=== PATIENT | male | born 1970 | race Hispanic/Latino ===

== ENCOUNTER 2024-07-22 12:40 | Inpatient (IN) | payer SELFPAY ==
[~2024-07-22] VITALS: Ht 152.4 cm; Wt 62.6 kg
[~2024-07-22 12:40] MED LIST: FERRETTS325 MG PO; HYDROCHLOROT25 MG PO; LANTUS100 UNIT SC; LEVEMIR100 UNIT SC; LEVOFLOXACIN750 MG PO; LIPITOR20 M1 PO; LOSARTAN POTASS50 MG PO; METFORMIN HCL500 M2 PO; NOVOLOG100 UNIT SC; TRAZODONE50 MG PO; VITAMIN C 500 M1 TAB PO
[2024-07-22] MEDS ORDERED: [UNRECOGNIZED DRUG - OTHER] PO (15:43)
[2024-07-23] MEDS ORDERED: GENTAMICIN SULFATE 250 MG in DEXTROSE 5% 100 ML IV ONE (12:50)
[2024-07-23] MEDS ORDERED: oxyCODONE HCL 5 MG/TAB PO PRN (22:00)
[2024-07-23] MEDS ORDERED: MAGNESIUM HYDROXIDE 30 ML UDC PO PRN (22:00)
[2024-07-23] MEDS ORDERED: DEXTROSE 250 ML IV PRN (22:00)
[2024-07-23] MEDS ORDERED: SODIUM CHLORIDE 0.9% 1,000 ML IV PRN (22:00)
[2024-07-23] MEDS ORDERED: ACETAMINOPHEN 325 MG/TAB PO PRN (22:00)
[2024-07-24] MEDS ORDERED: INSULIN LISPRO 100 UNITS/ML ML SC SCH (07:00)
[2024-07-24 07:42] VITALS: BP 149/61
[2024-07-24 09:41] LABS: BASO% 0.2 % (0-3); EOS% 0.8 % (0-8); HEMATOCRIT 26.2 % (39.0-50.0); HEMOGLOBIN 7.9 g/dl (14.0-18.0); IMMATURE GRANULOCYTES 0.2 % (0.0-5.0); LYMPH% 11.6 % (15-41); MEAN CORPUSCULAR HGB 28.4 pG CALC (26.0-32.0); MEAN CORPUSCULAR HGB CONC 30.2 g/dL CAL (32.0-36.0); NEUT# 3.88 thou/uL (1.82-7.42); NEUT% 80.2 % (42-76); RED BLOOD COUNT 2.78 mill/uL (4.70-6.10); RED CELL DISTRI WIDTH 13.3 % (11.5-15.5)
[2024-07-24 09:52] LABS: CREATININE 1.2 mg/dL (0.7-1.3); MEAN CELL VOLUME 94.2 fL CALC (80.0-100.0); TOTAL PROTEIN 5.7 g/dL (6.3-8.2)
[2024-07-24 09:54] LABS: ALBUMIN 2.6 g/dL (3.2-5.0); BILIRUBIN, TOTAL 0.2 mg/dL (0.2-1.3); POTASSIUM 4.7 mmol/l (3.5-5.1)
[2024-07-24] MEDS ORDERED: PATIENT' OWN MED 1 EA DOSE PO PRN ×3 (10:35)
[2024-07-24] MEDS ORDERED: HYDROmorphone HCL 2 MG/AMP IV PRN (10:40)
[2024-07-24] MEDS ORDERED: hydroCHLOROthiazide 25 MG/TAB PO SCH (11:00)
[2024-07-24] MEDS ORDERED: LOSARTAN Potassium 50 MG/TAB PO SCH (11:00)
[2024-07-24] MEDS ORDERED: VANCOMYCIN HCL 1 GM in SODIUM CHLORIDE 0.9% 250 ML IV ONE (11:30)
[2024-07-24] MEDS ORDERED: PIPERACILLIN Sodium-Tazobactam 3.375 GM in SODIUM CHLORIDE 0.9% 100 ML IV SCH (12:00)
[2024-07-24] MEDS ORDERED: DEXTROSE 250 ML IV PRN (12:00)
[2024-07-24] MEDS ORDERED: INSULIN GLARGINE 100 UNITS/ML SC SCH (12:30)
[2024-07-24 16:29] VITALS: BP 143/58
[2024-07-24 18:47] VITALS: BP 164/65
[2024-07-24] MEDS ORDERED: ATORVASTATIN CALCIUM 20 MG/TAB PO SCH (21:00)
[2024-07-24] MEDS ORDERED: ENOXAPARIN SODIUM 40 MG/0.4 ML SYR SC SCH (21:00)
[2024-07-25 04:25] VITALS: BP 132/65
[2024-07-25 07:00] VITALS: BP 156/59
[2024-07-25 15:37] VITALS: BP 183/71
[2024-07-25 15:40] VITALS: BP 176/79
[2024-07-25 18:50] VITALS: BP 170/71
[2024-07-25 21:21] VITALS: BP 156/71
[2024-07-26 04:26] VITALS: BP 143/70
[2024-07-26 05:55] LABS: BASO% 0.6 % (0-3); EOS% 2.5 % (0-8); HEMATOCRIT 22.5 % (39.0-50.0); HEMOGLOBIN 7.4 g/dl (14.0-18.0); IMMATURE GRANULOCYTES 0.4 % (0.0-5.0); LYMPH% 20.8 % (15-41); MEAN CELL VOLUME 88.6 fL CALC (80.0-100.0); MEAN CORPUSCULAR HGB 29.1 pG CALC (26.0-32.0); MEAN CORPUSCULAR HGB CONC 32.9 g/dL CAL (32.0-36.0); MONO% 9.5 % (2-13); NEUT# 3.15 thou/uL (1.82-7.42); NEUT% 66.2 % (42-76); RED BLOOD COUNT 2.54 mill/uL (4.70-6.10); RED CELL DISTRI WIDTH 13.6 % (11.5-15.5)
[2024-07-26 06:09] LABS: ALBUMIN 2.3 g/dL (3.2-5.0); CREATININE 1.2 mg/dL (0.7-1.3); TOTAL PROTEIN 5.5 g/dL (6.3-8.2)
[2024-07-26 06:25] LABS: MAGNESIUM 1.6 mg/dL (1.6-2.3)
[2024-07-26 06:32] LABS: BILIRUBIN, TOTAL 0.6 mg/dL (0.2-1.3); POTASSIUM 3.6 mmol/l (3.5-5.1)
[2024-07-26 06:47] VITALS: BP 154/73
[2024-07-26] MEDS ORDERED: INSULIN GLARGINE 100 UNITS/ML SC SCH (09:00)
[2024-07-26 18:16] VITALS: BP 158/74
[2024-07-27 03:49] VITALS: BP 153/75
[2024-07-27 05:34] LABS: BASO% 0.3 % (0-3); EOS% 3.3 % (0-8); HEMATOCRIT 22.8 % (39.0-50.0); HEMOGLOBIN 7.7 g/dl (14.0-18.0); IMMATURE GRANULOCYTES 0.3 % (0.0-5.0); LYMPH% 19.8 % (15-41); MEAN CELL VOLUME 87.7 fL CALC (80.0-100.0); MEAN CORPUSCULAR HGB 29.6 pG CALC (26.0-32.0); MEAN CORPUSCULAR HGB CONC 33.8 g/dL CAL (32.0-36.0); MONO% 10.7 % (2-13); NEUT# 2.38 thou/uL (1.82-7.42); NEUT% 65.6 % (42-76); RED BLOOD COUNT 2.6 mill/uL (4.70-6.10); RED CELL DISTRI WIDTH 13.5 % (11.5-15.5)
[2024-07-27 05:48] LABS: ALBUMIN 2.4 g/dL (3.2-5.0); BILIRUBIN, TOTAL 0.6 mg/dL (0.2-1.3); CREATININE 1.3 mg/dL (0.7-1.3); MAGNESIUM 1.6 mg/dL (1.6-2.3); POTASSIUM 3.5 mmol/l (3.5-5.1); TOTAL PROTEIN 5.8 g/dL (6.3-8.2)
[2024-07-27 06:59] VITALS: BP 144/66
[2024-07-27 08:34] VITALS: BP 144/66
[2024-07-27] MEDS ORDERED: LORTAB 5/3255 MG PO (09:38)
== END 2024-07-27 11:22 | disposition home or self-care (01) | DRG 712 ==
LOC: ULTRASND 12:40 → MS2 07-23 17:35
PROVIDERS: Internal Medicine; Nurse Practitioner Family; ADMIT Internal Medicine; ATTEND Internal Medicine
PROC: 0VT90ZZ Resection of Right Testis, Open Approach (ICD-10-PCS; principal; 2024-07-23)
PROC: 0HBAXZZ Excision of Inguinal Skin, External Approach (ICD-10-PCS; 2024-07-23)
DX: N50.89 Other specified disorders of the male genital organs (principal); N49.2 Inflammatory disorders of scrotum; I10 Essential (primary) hypertension; E11.69 Type 2 diabetes mellitus with other specified complication; E78.5 Hyperlipidemia, unspecified; D64.89 Other specified anemias; D69.59 Other secondary thrombocytopenia; B96.1 Klebsiella pneumoniae [K. pneumoniae] as the cause of diseases classified elsewhere; Z79.4 Long term (current) use of insulin; Z86.73 Personal history of transient ischemic attack (TIA), and cerebral infarction without residual deficits
CPT/HCPCS: J0690; J1580; J1815; J2543

== ENCOUNTER → 2024-07-23 | Day surgery (SDC) | payer SELFPAY ==
[~2024-07-23] VITALS: Ht 172.7 cm; Wt 62.6 kg
[~2024-07-23] MED LIST changes: +BUPIVACAINE HCL PF 0.5 % 50 MG/10 ML SDV ONE; +FAMOTIDINE 10MG/ML 2ML SDV IV ONE; +LORTAB 5/3255 MG PO; +SODIUM CHLORIDE 0.9% 1,000 ML IV ONE; +SODIUM CHLORIDE 0.9% 100 ML IV ONE; +STERILE WATER FOR IRRIGATION 1,000 ML BTL IR ONE; +[UNRECOGNIZED DRUG - OTHER] PO; +ceFAZolin 1 GM/VIAL SDV ONE
[2024-07-23 17:46] VITALS: BP 141/55
== END | disposition home or self-care (01) | DRG 951 ==
LOC: ORM 13:20
PROVIDERS: ATTEND Urology
DX: Z01.818 Encounter for other preprocedural examination (principal); N49.2 Inflammatory disorders of scrotum
CPT/HCPCS: J0690